=== PATIENT | female | born 1980 | race African-American/Black ===

== ENCOUNTER 2019-12-11 09:01 | Emergency (ER) | payer MEDICAID ==
[~2019-12-11] VITALS: Ht 167.6 cm; Wt 89.0 kg
[2019-12-11] MEDS ORDERED: KETOROLAC 60MG/2ML VIAL IM ONE (09:45)
[2019-12-11] MEDS ORDERED: IBUPROFEN 600MG TABLET PO ONE (10:00)
[2019-12-11 10:58] VITALS: BP 116/71
== END 2019-12-11 11:02 | disposition home or self-care (01) ==
LOC: ER 09:18
DX: M54.5 Low back pain (principal); M25.551 Pain in right hip; Z83.3 Family history of diabetes mellitus; V49.88XA Car occupant (driver) (passenger) injured in other specified transport accidents, initial encounter; Y93.89 Activity, other specified; Y92.89 Other specified places as the place of occurrence of the external cause; Y99.8 Other external cause status
CPT/HCPCS: 72100; 73521; 99284; J1885

== ENCOUNTER 2025-05-19 19:40 | Emergency (ER) | payer BC, MEDICAID ==
[~2025-05-19] VITALS: Ht 165.1 cm; Wt 88.3 kg
[2025-05-19 20:18] VITALS: O2SAT 100
[2025-05-19 21:05] LABS: BASOPHILS % 1.3 % (0.0-2.0); EOSINOPHILS % 1.0 % (0.0-5.0); HEMATOCRIT. 42.3 % (36.0-48.0); HEMOGLOBIN. 14.8 g/dL (12.0-16.0); LYMPHOCYTES % 50.9 % (20.0-50.0); MEAN PLATELET VOLUME 6.6 fl (7.4-10.4); MONOCYTES % 7.0 % (2.0-8.0); NEUTROPHILS % 39.8 % (40.0-76.0); PLATELET 383 x1000/uL (130-400); RED BLOOD CELL COUNT 4.31 mill/uL (4.2-5.4); RED CELL DISTRIBUTION WIDTH 14.1 % (11.6-14.6)
[2025-05-19] MEDS: METHOCARBAMOL 500MG TABLET PO ONE (21:11)
[2025-05-19] MEDS: KETOROLAC 30MG/ML VIAL IM ONE (21:11)
[2025-05-19 21:19] LABS: CREATININE 0.9 mg/dL (0.6-1.0); TROPONIN I HIGH SENSITIVITY < 4 ng/L (3.0-34)
[2025-05-19 21:20] LABS: UREA NITROGEN BLOOD 8 mg/dL (9-23)
[2025-05-19] MEDS ORDERED: METH-653 MT (22:14)
[2025-05-19] MEDS ORDERED: IBUP-2029 MT (22:14)
[2025-05-19 22:48] LABS: HCG SCREEN NEGATIVE
[2025-05-19 22:53] VITALS: BP 129/83; PULSE 71; RESP 18; O2SAT 100
== END 2025-05-19 22:54 | disposition home or self-care (01) ==
LOC: ER 19:40
DX: S39.012A Strain of muscle, fascia and tendon of lower back, initial encounter (principal); S33.5XXA Sprain of ligaments of lumbar spine, initial encounter; S43.402A Unspecified sprain of left shoulder joint, initial encounter; S20.219A Contusion of unspecified front wall of thorax, initial encounter; W23.0XXA Caught, crushed, jammed, or pinched between moving objects, initial encounter; Y93.89 Activity, other specified; Y92.89 Other specified places as the place of occurrence of the external cause; Y99.8 Other external cause status
CPT/HCPCS: 99285; 71045; 80048; 81025; 84703; 85025; 84484; 36415; 72100; 73030; 93005; 96372; J1885

== ENCOUNTER 2025-06-29 20:30 | Emergency (ER) | payer OTHER, BC ==
[~2025-06-29] VITALS: Ht 165.1 cm; Wt 89.9 kg
[~2025-06-29 20:30] MED LIST: IBUP-1455 MT; METH-653 MT
[2025-06-29 20:38] VITALS: O2SAT 100
[2025-06-29] MEDS: METOCLOPRAMIDE HCL 10MG TABLET PO ONE (21:30)
[2025-06-29] MEDS: ACETAMINOPHEN 500MG TABLET PO ONE (21:30)
[2025-06-29] MEDS ORDERED: NAPR-1176 MT (21:42)
[2025-06-29 23:18] VITALS: BP 135/79; PULSE 78; RESP 14; TEMP 36.8; O2SAT 95
[2025-06-29] MEDS: METOCLOPRAMIDE HCL 10MG TABLET PO NR (23:19)
[2025-06-29] MEDS: ACETAMINOPHEN 500MG TABLET PO NR (23:19)
== END 2025-06-29 23:20 | disposition home or self-care (01) ==
LOC: ER 20:30
DX: S09.90XA Unspecified injury of head, initial encounter (principal); V49.9XXA Car occupant (driver) (passenger) injured in unspecified traffic accident, initial encounter; Y92.410 Unspecified street and highway as the place of occurrence of the external cause; Y93.89 Activity, other specified; Y99.8 Other external cause status
CPT/HCPCS: 99284; 70450; J8597